=== PATIENT | female | born 1975 | race Caucasian/White ===

== ENCOUNTER → 2021-01-16 | Outpatient (CLI) | payer SELFPAY ==
--- NOTE | 2021-01-16 17:19 | KCIC ---
Examination: 3 views left shoulder HISTORY: History of left shoulder pain radiating down the arm COMPARISON: None available FINDINGS: The humerus head is within the glenoid. There is no acute fracture or dislocation identified. IMPRESSION: No acute osseous findings. Electronically signed by: John Taveras MD (01/16/2021 5:16 PM) [id number]
== END ==
LOC: KCIC 14:57
PROVIDERS: ATTEND Family Medicine
DX: M25.512 Pain in left shoulder (principal)
CPT/HCPCS: 73030